=== PATIENT | female | born 1975 | race Caucasian/White ===

== ENCOUNTER 2018-03-17 10:44 | Inpatient (IN) | payer SELFPAY ==
[2018-03-17 10:45] VITALS: BP 208/102; PULSE 96; RESP 16; TEMP 36.6; O2SAT 100; BMI 40.7
--- NOTE | 2018-03-17 11:08 | RAD_ITS ---
STUDY: X-RAY - RIGHT TIBIA AND FIBULA REASON FOR EXAM: Female, 42 years old. Infection TECHNIQUE: 2 view(s) of the tibia and fibula were obtained. COMPARISON: None. FINDINGS: No evidence for acute fractures or dislocation. Joint space narrowing in the lateral knee compartment. Osteophytic spurring also noted. There is soft tissue swelling in the right leg noted. Enthesophytes at the tibial tuberosity. Plantar and calcaneal spurring. IMPRESSION: No definite evidence of osseous erosions. Soft tissue swelling. Please consider MRI exam for better assessment of osteomyelitis Electronically Signed: Marty Brown, at 12:34 EST Tel , Service support , RAD/Tibia & Fibula 2 Views
--- NOTE | 2018-03-17 11:08 | RAD_ITS ---
STUDY: X-RAY - LEFT TIBIA AND FIBULA REASON FOR EXAM: Female, 42 years old. ] Infection TECHNIQUE: 4 view(s) of the tibia and fibula were obtained. COMPARISON: None. FINDINGS: Normal visualized tibia. Normal visualized fibula. Visualized degenerative change within the left knee joint with moderate narrowing of the lateral compartment moderate to severe narrowing of the medial compartment and moderate patellofemoral arthrosis. There is a diffuse pattern of edema throughout the left calf. There is visualized plantar and Achilles spur of the calcaneus. There is soft tissue swelling. RAD/Tibia & Fibula 2 Views IMPRESSION: Moderate to severe change of the knee joint. Diffuse soft tissue edema. Electronically Signed: Crystal Anton MD at 13:02 EST Tel , Service support ,
--- NOTE | 2018-03-17 11:08 | RAD_ITS ---
STUDY: X-RAY - RIGHT FOOT CLINICAL: Female, 42 years old. Infection TECHNIQUE: 3 view(s) of the foot. COMPARISON: None. FINDINGS: Normal alignment at the metatarsophalangeal joints. No evidence for acute fractures. There is soft tissue swelling noted. There is likely soft tissue ulcerations along the distal dorsal aspect of the foot. IMPRESSION: Soft tissue ulcerations along the dorsal aspect of the foot suspected. No definite evidence for osseous erosions. Please note subtle osteomyelitis is not excluded from this examination. Please consider MRI examination with and without IV contrast for complete assessment Electronically Signed: Marty Brown, at 12:32 EST Tel , Service support , RAD/Foot min 3 Views
--- NOTE | 2018-03-17 11:26 | ED.VISSUMM ---
- ER Visit Summary Date of Service: 03/17/18 Chief Complaint: Bilateral leg wounds History of Present Illness: The patient is a 42 F who admits to not going to the doctor in several years. She reports developing a wound/rash on her lower extremity after a fall down steps at least a year ago. Since that time she has had progression of wounds on her legs. She has not sought medical care for this. She presents today stating that she just cannot take it anymore. Physical Examination: Blood pressure is 208/102, temperature 97.8, heart rate 96, respiratory rate 16, pulse ox 100% on room air. Patient is sitting upright in bed. She is nontoxic appearing. Head neck examination is unremarkable. Heart is regular rate and rhythm. Lung sounds are clear. Abdomen is soft, obese, nontender. Lower extremity examination reveals multiple wounds to all surfaces of the lower extremities distal to the knee and onto the right foot. There are areas of pitting and skin destruction with foul-smelling, green film over the wounds and smell consistent with Pseudomonas. Test Results: CBC was normal overall white count with 80% neutrophil count. Chemistry studies significant for glucose of 164, BUN 38, creatinine 1.65. X-rays of bilateral tib fibs and foot reveal evidence of soft tissue infection, but no evidence of bony erosion. Emergency Department Course and Treatment: Aerobic and anaerobic wound cultures were obtained from the right lower leg wound. Patient was given Zosyn and vancomycin. Patient was discussed with hospitalist and admitted for further treatment. Treatment Plan: [] Disposition: Admit Impression: Bilateral lower extremity wounds This note was generated with [employer] dictation software. It may contain incorrect words, spelling, and punctuation that were not noted in review of the chart prior to signing ED Disposition - Plan for ED Patient: Disposition: Acute Care [facility] Chief Complaint: Cellulitis
[2018-03-17 11:43] LABS: Absolute Neutrophil Count 8.5 X10^3/uL (2.0-7.7); Basophil# 0.03 X10^3/uL; Basophil% 0.3 % (0-1); Eosinophil# 0.14 X10^3/uL; Eosinophils% 1.3 % (0-5); Hematocrit 38.6 % (37-47); Hemoglobin 12.8 g/dl (12.0-15.0); Lymphocyte % 13.3 % (19-41); Mean Corp Hgb Conc 33.2 g/gl (32-36); Mean Corpuscular Hgb 29.4 pg (27.0-32.0); Mean Corpuscular Volume 88.5 fL (81-99); Mean Platelet Vol. 9.9 fl (6.2-12.0); Monocyte% 4.7 % (0-10); Neutrophil # 8.46 X10^3/uL (2.7-7.7); Neutrophil % 80.2 % (47-70); POSITIVE COUNT NO; POSITIVE DIFFERENTIAL NO; POSITIVE MORPHOLOGY NO; Platelet Count 270 K/mm3 (150-450); RBC Distribution Width SD 45.2 fl (35.1-43.9); Red Blood Count 4.36 M/mm3 (4.2-5.4); White Blood Count 10.6 K/mm3 (4.4-11.0)
[2018-03-17] MEDS: 0.9% Normal Saline 1,000 ML 15 ML IV (11:43)
[2018-03-17 11:59] LABS: Anion Gap 10 (5-15); BUN 38 mg/dL (7-18); Calcium,Total 9.4 mg/dL (8.5-10.1); Chloride 106 mmol/L (98-107); Creatinine, Serum 1.65 mg/dL (0.55-1.02); EST Glomerular Filtration Rate 36 mL/min (>60); Est Glom Filt Rate - Afr Amer 44 mL/min (>60); Estimated Creatinine Clearance 42.75 ml/min; Glucose 164 mg/dL (74-106); Potassium 3.4 mmol/L (3.5-5.1); Sodium Level 139 mmol/L (136-145)
[2018-03-17 12:50] VITALS: BP 155/80; PULSE 84; RESP 16; O2SAT 98
[2018-03-17 13:50] VITALS: PULSE 86; BMI 40.7; BMI 61.3
--- NOTE | 2018-03-17 14:02 | HP.PCM_ITS ---
Problem List (1) Bilateral lower leg cellulitis Status: Chronic (2) Elevated blood pressure Status: Chronic History of Present Illness Date of Admission: 03/17/18 Chief Complaint: Cellulitis The patient is a 42 year old F who has no medical history to her in a large number of years. She presents after a an accident about a year ago that left her with an open wound on her foot on the right, since then it has been progressively getting worse and extending up from the top of her right foot to below her knee. She also developed for the last couple of weeks worsening cellulitis on her left leg as well as on her right leg. She denies any fevers, or chills. There is an extensive family history of diabetes but she does not know if she is diabetic or not because she has not gone to the doctor. She presented today because she finally had an off and her was able to smell her wounds for the first time according to him. In the ER x-rays of her lower extremities demonstrate soft tissue swelling but they were inconclusive for any osteomyelitis or destruction. She was given a dose of vancomycin and Zosyn in the ER because the smell is very consistent with a pseudomonal infection. Past Medical History Past Medical History (Chronic Problems): Chronic Problems Bilateral lower leg cellulitis (Chronic) Elevated blood pressure (Chronic) Allergies No Known Allergies Allergy (Verified 12/11/12 13:28) Home Medications: Ambulatory Orders Medication Instructions Recorded NK 03/17/18 Surgical History: no surgical history Lives: Spouse/ Significant Other Smoking Status: Current every day smoker Tobacco Use: Cigarettes Alcohol: None Drugs: None - *Family History Maternal History Items: Cancer, Diabetes, Heart Disease, Hypertension Paternal History Items: Cancer, Diabetes, Heart Disease, Hypertension Review of Systems Constitutional: Denies: Chills, Fever, Weight Change HEENT: Denies: Head Aches, Sinus Congestion, Sinus Drainage Cardiovascular: Denies: Chest Pain, Palpitations Respiratory: Denies: Cough, Shortness of breath at rest, Sputum production Gastrointestinal: Denies: Abdominal Pain, Nausea, Vomiting Genitourinary: Denies: Dysuria Musculoskeletal: Denies: Joint Pain, Joint Tenderness Skin: Reports: Lesions, Wounds. Denies: Rash Neurological: Denies: Numbness, Tingling, Focal weakness Psychiatric: Denies: Anxiety, Depression Hematologic/ Lymphatic: Denies: Easy Bruising, Easy Bleeding VTE Information - Inpt Only VTE Present on Admission: No - Physical Exam General: Alert, Oriented x3, Cooperative, No apparent distress HEENT: Atraumatic, PERRLA, EOMI, Normocephalic Oral: Moist Mucosa Neck: Supple, No JVD, Trachea Midline Lungs: Clear to auscultation, Normal air movement, No rhonchi, No wheeze, No rales, Diminished Cardiovascular: Regular rate, Regular Rhythm, Normal S1, Normal S2, No murmurs, No rub noted, No Gallop Abdomen: Soft, Non Tender, Non-Distended, No Hepato-splenomegaly Extremities: Capillary Refill Less than 3 Seconds, Edema Skin: - - Multiple areas on both legs with open wounds. Her right foot has wounds stretching across her toes on the anterior surface. There is extensive redness extending from her foot up to her knee on both legs Neurological: Neuro grossly intact, Sensory exam intact to light touch and pain Psych/Mental Status: Normal Affect, Appropriate Vital Signs Temp Pulse Resp BP Pulse Ox 97.8 F 84 16 155/80 H 98 03/17/18 10:45 03/17/18 12:50 03/17/18 12:50 03/17/18 12:50 03/17/18 12:50 Oxygen Delivery Method Room Air Weight: 260 lb Body Mass Index (BMI) 40.7 Laboratory Tests Past 24 Hrs 03/17/18 03/17/18 11:35 11:35 WBC 10.6 RBC 4.36 Hgb 12.8 Hct 38.6 MCV 88.5 MCH 29.4 MCHC 33.2 RDW 14.0 RDW Differential 45.2 H Plt Count 270 MPV 9.9 Immature Gran % (Auto) 0.200 Neut % (Auto) 80.2 H Lymph % (Auto) 13.3 L [place] % (Auto) 4.7 Eos % (Auto) 1.3 Baso % (Auto) 0.3 Absolute Neuts (auto) 8.5 H Absolute Lymphs (auto) 1.40 Total Counted Not Reportable Sodium 139 Potassium 3.4 L Chloride 106 Carbon Dioxide 23.0 Anion Gap 10 BUN 38 H Creatinine 1.65 H Estim Creat Clear Calc 42.75 Est GFR (MDRD) Af Amer 44 L Est GFR (MDRD) Non-Af 36 L BUN/Creatinine Ratio 23.0 H Glucose 164 H Calcium 9.4 Assessment/Plan All Active Problems Torticollis, acute (Acute) 1. Significant bilateral lower extremity cellulitis with open wounds -X-ray of the tibia does not show any periosteal destruction or elevation, there is soft tissue edema -We will consult podiatry for foot and ankle wound biopsies and possible washout -We will obtain an MRI of her right lower extremity to determine the presence of osteomyelitis -Continue with IV Zosyn and vancomycin -We will obtain lipid panels as well as an A1c -Consult wound care nurse 2. Tobacco abuse -Counseled on cessation 3. Elevated creatinine -Creatinine is 1.65 unfortunately she is never been to a doctor so I do not have any comparison -We will treat as of this is an AK I but may very well be chronic kidney disease given the likelihood of her diabetes DVT: Lovenox Code Visit Inpatient E&M: 21965 Init Hosp L2
[2018-03-17 14:30] VITALS: BP 160/96; PULSE 86; RESP 18; TEMP 36.6; O2SAT 99
--- NOTE | 2018-03-17 14:34 | PCM.RX.CS ---
Consult Pharmacy has been consulted to manage selected antiobiotic: Vancomycin Type of Consult: New start Suspected Infection: Skin/Soft tissue Prior Doses of Antibiotics Received/Current Regimen: Received vancomycin 2000mg IV x1 in E.R. today at 12:19 Labs: Sodium 139 mmol/L (136-145) 03/17/18 11:35 Potassium 3.4 mmol/L (3.5-5.1) L 03/17/18 11:35 Chloride 106 mmol/L (98-107) 03/17/18 11:35 Carbon Dioxide 23.0 mmol/L (21.0-32.0) 03/17/18 11:35 Anion Gap 10 (5-15) 03/17/18 11:35 BUN 38 mg/dL (7-18) H 03/17/18 11:35 Creatinine 1.65 mg/dL (0.55-1.02) H 03/17/18 11:35 Est GFR (MDRD) Af Amer 44 mL/min (>60) L 03/17/18 11:35 Est GFR (MDRD) Non-Af 36 mL/min (>60) L 03/17/18 11:35 BUN/Creatinine Ratio 23.0 RATIO (10-20) H 03/17/18 11:35 Glucose 164 mg/dL (74-106) H 03/17/18 11:35 Weight used for dosin kg Estimated Creatinine Clearance: 43 ml/min Goal Trough: 15-20 mcg/mL Pharmacy Plan for Drug Dosing: Per the [facility] Pharmacist-managed IV Vancomycin Dosing Protocol, the recommendation is to continue dosing at 1000mg IV q12h to aim for a goal trough of 15-20 as the patient has cellulitis with possible osteomyelitis. The trough will be obtained before the 4th total dose. Pharmacy Service will continue to monitor and adjust dosing as required. Follow-Up Labs: Trough Vancomycin Labs to be done on [date and time ordered]: 03/18/18 at 23:30
--- NOTE | 2018-03-17 14:38 | PHA.PHARE_ITS ---
Consult Pharmacy has been consulted to manage selected antiobiotic: Vancomycin Type of Consult: New start Suspected Infection: Skin/Soft tissue Prior Doses of Antibiotics Received/Current Regimen: Received vancomycin 2000mg IV x1 in E.R. today at 12:19 Labs: Sodium 139 mmol/L (136-145) 03/17/18 11:35 Potassium 3.4 mmol/L (3.5-5.1) L 03/17/18 11:35 Chloride 106 mmol/L (98-107) 03/17/18 11:35 Carbon Dioxide 23.0 mmol/L (21.0-32.0) 03/17/18 11:35 Anion Gap 10 (5-15) 03/17/18 11:35 BUN 38 mg/dL (7-18) H 03/17/18 11:35 Creatinine 1.65 mg/dL (0.55-1.02) H 03/17/18 11:35 Est GFR (MDRD) Af Amer 44 mL/min (>60) L 03/17/18 11:35 Est GFR (MDRD) Non-Af 36 mL/min (>60) L 03/17/18 11:35 BUN/Creatinine Ratio 23.0 RATIO (10-20) H 03/17/18 11:35 Glucose 164 mg/dL (74-106) H 03/17/18 11:35 Weight used for dosin kg Estimated Creatinine Clearance: 43 ml/min Goal Trough: 15-20 mcg/mL Pharmacy Plan for Drug Dosing: Per the [facility] Pharmacist-managed IV Vancomycin Dosing Protocol, the recommendation is to continue dosing at 1000mg IV q12h to aim for a goal trough of 15-20 as the patient has cellulitis with possible osteomyelitis. The trough will be obtained before the 4th total dose. Pharmacy Service will continue to monitor and adjust dosing as required. Follow-Up Labs: Trough Vancomycin Labs to be done on [date and time ordered]: 03/18/18 at 23:30
--- NOTE | 2018-03-17 14:44 | NURSING ---
PER NIRAJ IN MICROBIOLOGY, SHE HAS RECEIVED WOUND CULTURES FOR THIS PT FROM THE ER-AEROBIC AND ANAEROBIC
[2018-03-17] MEDS: Acetaminophen 325 MG Tablet 650 MG PO ×2 (15:31→20:46)
[2018-03-17] MEDS: Morphine 2 MG/ML Syringe IV (15:32)
[2018-03-17] MEDS: 0.9% Normal Saline 1,000 ML 100 ML IV (15:33)
[2018-03-17] MEDS: Insulin Lispro 100 UNIT/ML INSULN.PEN SQ ×2 (16:07→20:53)
[2018-03-17 16:11] LABS: Bedside Glucose 155 mg/dL (70-110)
[2018-03-17] MEDS: Nystatin Powder 15gm Bottle 1 APPLIC TOPICAL (20:52)
[2018-03-17 21:00] VITALS: BP 151/82; PULSE 84; RESP 18; TEMP 37; O2SAT 97
[2018-03-17 21:01] LABS: Bedside Glucose 191 mg/dL (70-110)
[2018-03-17] MEDS: Piperacil/Tazobactam 3.375 GM/50 ML ML IV (21:41)
[2018-03-17] MEDS: Vancomycin IV 1,000 MG/200 ML BAG 200 MG IV (23:55)
[2018-03-18] MEDS: 0.9% Normal Saline 1,000 ML 100 ML IV ×3 (01:22→22:14)
[2018-03-18] MEDS: Acetaminophen 325 MG Tablet 650 MG PO ×3 (03:09→19:56)
[2018-03-18 03:33] VITALS: BP 153/89; PULSE 84; RESP 18; TEMP 36.4; O2SAT 98
[2018-03-18] MEDS: Piperacil/Tazobactam 3.375 GM/50 ML ML IV ×3 (05:47→22:14)
[2018-03-18] MEDS: Nystatin Powder 15gm Bottle 1 APPLIC TOPICAL ×2 (05:48→20:02)
[2018-03-18 06:25] LABS: Absolute Lymphocyte Count 0.98 X10^3/ul (0.83-4.51); Absolute Neutrophil Count 7.9 X10^3/uL (2.0-7.7); Basophil# 0.03 X10^3/uL; Basophil% 0.3 % (0-1); Eosinophil# 0.14 X10^3/uL; Eosinophils% 1.4 % (0-5); Hematocrit 36.2 % (37-47); Hemoglobin 11.9 g/dl (12.0-15.0); Lymphocyte # 0.98 X10^3/ul (4.0); Lymphocyte % 10.1 % (19-41); Mean Corp Hgb Conc 32.9 g/gl (32-36); Mean Corpuscular Hgb 29.4 pg (27.0-32.0); Mean Corpuscular Volume 89.4 fL (81-99); Mean Platelet Vol. 10.4 fl (6.2-12.0); Monocyte% 7.2 % (0-10); Neutrophil # 7.87 X10^3/uL (2.7-7.7); Neutrophil % 80.8 % (47-70); Platelet Count 263 K/mm3 (150-450); RBC Distribution Width CV 14.1 % (11.6-14.6); RBC Distribution Width SD 45.1 fl (35.1-43.9); Red Blood Count 4.05 M/mm3 (4.2-5.4); White Blood Count 9.7 K/mm3 (4.4-11.0)
[2018-03-18 06:29] LABS: Anion Gap 11 (5-15); BUN 33 mg/dL (7-18); BUN/Creat Ratio 25.4 RATIO (10-20); Calcium,Total 8.9 mg/dL (8.5-10.1); Chloride 108 mmol/L (98-107); Cholesterol 142 mg/dL (200); EST Glomerular Filtration Rate 47 mL/min (>60); Est Glom Filt Rate - Afr Amer 57 mL/min (>60); Estimated Creatinine Clearance 54.26 ml/min; Glucose 168 mg/dL (74-106); High Density Lipoprotein 44 mg/dL; Potassium 3.6 mmol/L (3.5-5.1); Sodium Level 142 mmol/L (136-145); Triglycerides 93 mg/dL; Very Low Density Lipoprotein 19 mg/dL (5-40)
[2018-03-18 07:10] LABS: POSITIVE COUNT NO; POSITIVE DIFFERENTIAL NO; POSITIVE MORPHOLOGY NO
[2018-03-18 07:31] LABS: Bedside Glucose 135 mg/dL (70-110)
[2018-03-18 08:36] LABS: Hemoglobin A1c 8.1 % (4.2-6.3)
[2018-03-18] MEDS: Enoxaparin 40 MG/0.4 ML Syringe SC (09:47)
[2018-03-18 09:54] VITALS: BP 175/92; PULSE 80; RESP 18; TEMP 37.5; O2SAT 100
[2018-03-18 11:06] LABS: Bedside Glucose 137 mg/dL (70-110)
[2018-03-18] MEDS: Vancomycin IV 1,000 MG/200 ML BAG 200 MG IV (11:29)
--- NOTE | 2018-03-18 11:35 | CASEMGMT ---
LUCITA RIVERA Assessment. Presentation: presented to ER with nonhealing open wound on R foot from accident 1 year ago. Wound cultures, podiatry and wound nurse consult. Intro role of CM to patient and her boyfriend in room. PCP: none, list of PCP's given to pt. F/U for this admission can be with podiatry until set up with PCP. Pharmacy: [facility]. Pt does not have prescription coverage. SW updated pt may need [facility] prescription assist on dc. Insurance: none. pt states she works, but they do not have insurance at this time. SHANTA Gu consulted to speak with pt re: options. Living arrangements: Lives in one story home with Boyfriend, Derek Davila and her 21 year old son. Per MrTalita Reed, he is willing to learn to do dressing changes and provide transportation for pt. DME: none. Pt may need walker, states she has friend who may let her borrow. Otherwise, LUCITA RIVERA let pt know she can purchase one @ [facility] or [facility]. Transportation: son and boyfriend will assist with transportation. DC Plan: Home with family support for dressing changes. F/U with podiatry on dc. Brennen BELLA RN ACM
[2018-03-18] MEDS: Morphine 2 MG/ML Syringe IV ×2 (11:54→14:58)
[2018-03-18] MEDS: 0.9% NaCl Peripheral Flush Adult/Peds IV (11:54)
--- NOTE | 2018-03-18 13:16 | CASEMGMT ---
Social Work Note SHANTA met with pt as pt is listed as self-pay. SW introduced self and role at [facility]. Pt is alert and orientated x4. Pt has guest present in room but gave this worker permission to speak to her in front of her guest. Pt confirms that she is self-pay. SW provided pt with financial resources including HCAP application, [employer] [facility], [employer], [facility], Prescription assistance programs, and Medicaid application. SHANTA informed pt that HCAP and Medicaid application can be completed while at [facility] and then can be submitted. Pt states understanding. Connie Mullins ROSS CARRIER DRIVER, ACCOUNT COLLECTOR
[2018-03-18 13:19] LABS: M R Staph aureus DNA By PCR Negative (Negative); Probe Check PASS; Specimen Processing Control PASS; Staph aureus DNA By PCR NEGATIVE (Negative)
--- NOTE | 2018-03-18 14:32 | PCM.CONS.GEN ---
Reason for Consult Date of Consultation: 03/18/18 Reason for Consultation: Lower extremity ulcerations with infection History of Present Illness: The patient is a 42 year old female with obesity, recently diagnosed with diabetes, increased creatinine, presented to the hospital with bilateral lower extremity ulcerations. She relates these started ~1 year ago, she relates she was trying to treat these herself, she states they would get better, then worse, then better, but now significantly worse. She presented to the ER because her boyfriend noticed an oder. It was noted in the ER she had significant lower extremity wounds, right much worse than left. A culture has been obtained and final results pending. Cellulitis was noted. Xrays were negative for gas in the tissues or any evidence of osteomyelitis. She does not relate to any fever, chills, nausea or vomiting. She relates the wounds are painful. Past Medical History Past Medical History (Chronic Problems): Chronic Problems Bilateral lower leg cellulitis (Chronic) Elevated blood pressure (Chronic) Allergies No Known Allergies Allergy (Verified 12/11/12 13:28) Home Medications: Ambulatory Orders Medication Instructions Recorded NK 03/17/18 Surgical History: no surgical history Lives: Spouse/ Significant Other Smoking Status: Current every day smoker Tobacco Use: Cigarettes Alcohol: None Drugs: None - *Family History Maternal History Items: Cancer, Diabetes, Heart Disease, Hypertension Paternal History Items: Cancer, Diabetes, Heart Disease, Hypertension Review of Systems Constitutional: Denies: Chills, Fever Gastrointestinal: Denies: Nausea, Vomiting Musculoskeletal: Reports: Foot Pain Skin: Reports: Wounds Objective: Reviewed lower extremity xrays - no gas in the tissues, no evidence of osteomyelitis - Physical Exam General: Alert, Oriented x3, Cooperative, No apparent distress Extremities: No clubbing, No cyanosis, Capillary Refill Less than 3 Seconds, Peripheral Pulses Normal, - - There is diffuse venous insufficiency with chronic venous stasis skin changes bilateral LE. There are multiple ulcerations to the right lower extremity down to the subcutaneous tissue, there is significant slough and fibrotic tissue, but granular tissue is noted as well, there is some cellulitis around the wounds, there is pain to the wound sites, there is some maloder, but no visible abscess, no fluctuance, no crepitus noted. CFT < 2 seconds to all toes bilateral, no evidence of ischemia to the foot bilateral. Pedal pulses intact bilateral. Toenails are thickened, dystrophic, yellow, with subungual debris 1-5 bilateral. Muscle strength intact bilateral, motor function intact bilateral lower extremity. Sensation intact to touch bilateral foot. There is no significant deformity to the foot bilateral. Diffuse lower extremity edema bilateral. Skin: Ulcer/ Wound - Multiple lower extremity ulcerations, no probe to bone, muslce or tendon. Musculoskeletal: No Tenderness to Palpation of Joints or Extremities - Pain to the ulcerations of the lower extremity, otherwise no other pain to the joints of the foot/ankle bilateral. Psych/Mental Status: Alert and oriented to time, place, person, mood and affect Vital Signs Temp Pulse Resp BP Pulse Ox 99.5 F H 80 18 175/92 H 100 03/18/18 09:54 03/18/18 09:54 03/18/18 09:54 03/18/18 09:54 03/18/18 09:54 Oxygen Delivery Method Room Air Weight: 177.7 kg Body Mass Index (BMI) 61.3 Intake and Output for Last 24 Hours 03/16/18 03/17/18 03/18/18 23:59 23:59 23:59 Intake Total 1356 / 1356 1914 / 1914 Output Total 1050 / 1050 Balance 1356 / 1356 864 / 864 Microbiology Past 72 Hours 03/17/18 11:10 Gram Stain - Final Wound - Leg Wound Culture - Preliminary Gram negative jerod Beta hemolytic organism Laboratory Tests Past 24 Hrs 03/18/18 03/18/18 03/18/18 05:20 05:20 05:20 WBC 9.7 RBC 4.05 L Hgb 11.9 L Hct 36.2 L MCV 89.4 MCH 29.4 MCHC 32.9 RDW 14.1 RDW Differential 45.1 H Plt Count 263 MPV 10.4 Immature Gran % (Auto) 0.200 Neut % (Auto) 80.8 H Lymph % (Auto) 10.1 L [place] % (Auto) 7.2 Eos % (Auto) 1.4 Baso % (Auto) 0.3 Absolute Neuts (auto) 7.9 H Absolute Lymphs (auto) 0.98 Total Counted Not Reportable Sodium 142 Potassium 3.6 Chloride 108 H Carbon Dioxide 23.0 Anion Gap 11 BUN 33 H Creatinine 1.30 H Estim Creat Clear Calc 54.26 Est GFR (MDRD) Af Amer 57 L Est GFR (MDRD) Non-Af 47 L BUN/Creatinine Ratio 25.4 H Glucose 168 H Hemoglobin A1c 8.1 H Calcium 8.9 Triglycerides 93 Cholesterol 142 LDL Cholesterol 79 VLDL Cholesterol 19 HDL Cholesterol 44 S.aureus Protein A PCR MRSA (PCR) 03/18/18 03/18/18 09:20 09:20 WBC RBC Hgb Hct MCV MCH MCHC RDW RDW Differential Plt Count MPV Immature Gran % (Auto) Neut % (Auto) Lymph % (Auto) [place] % (Auto) Eos % (Auto) Baso % (Auto) Absolute Neuts (auto) Absolute Lymphs (auto) Total Counted Sodium Potassium Chloride Carbon Dioxide Anion Gap BUN Creatinine Estim Creat Clear Calc Est GFR (MDRD) Af Amer Est GFR (MDRD) Non-Af BUN/Creatinine Ratio Glucose Hemoglobin A1c Calcium Triglycerides Cholesterol LDL Cholesterol VLDL Cholesterol HDL Cholesterol S.aureus Protein A PCR NEGATIVE NEGATIVE MRSA (PCR) Negative Negative POC Glucose 03/18/18 03/18/18 03/17/18 11:00 07:26 20:51 POC Glucose 137 H 135 H 191 H 03/17/18 16:06 POC Glucose 155 H Assessment/Plan All Active Problems Torticollis, acute (Resolved) Multiple lower extremity ulcerations down to the subcutaneous tissue layer w/ cellulitis Venous insufficiency bilateral lower extremity Diabetes Reviewed findings and diagnostic data. Given the findings recommend debridement of ulcerations in the OR setting as patient is sensate, and will need anesthesia. This was discussed with her in detail, reviewed the rationale of this as well as the possible benefits vs risks, goals, expectations and typical healing time. She understands it will take awhile for these ulcerations to heal, and she will need close and regular follow up. I have recommended she follow up at the wound center once discharged for on going wound care. The patient expressed understanding and agreement with this. No guarantees were given or implied. We will plan to proceed with this procedure 03/19/18 at noon, patient to be NPO at midnight. Continue to follow culture, MRSA DNA PCR was negative for MRSA. The patient will continue on Zosyn at this time, as it does to appear to be helping (cellulitis has receded from the marked line). Diabetes management and management of patient's other medical problems per the medicine team. I have discussed cased with Dr. Lira from the medicine team. Podiatry will continue to follow. Thank you for consultation.
--- NOTE | 2018-03-18 15:08 | CHAPLAIN ---
Type of Pastoral Visit _x__ Initial Visit ___ Follow-up Visit ___ On-call Visit ___ General Patient Visit ___ Spiritual Assessment ___ Family Conference ___ Bereavement ___ Rapid Response ___ Code Blue ___ Other (describe below) Pastoral Care Referral From _x__ Patient ___ Family ___ Nurse ___ Physician ___ E Commerce Director ___ Hand Picker ___ Other (describe below) Sacrament/Intervention _x__ Active listening ___ Anointing ___ Alevism ___ Bereavement ___ Communion ___ Beatriz exploration ___ _x__ Life review ___ Prayer ___ Reconciliation ___ Sacrament of Sick _x__ Supportive presence ___ Wedding ___ Other (describe below) Pastoral Comments
[2018-03-18 15:15] VITALS: BP 169/86; PULSE 80; RESP 16; TEMP 36.9; O2SAT 95
[2018-03-18 16:25] LABS: Bedside Glucose 144 mg/dL (70-110)
--- NOTE | 2018-03-18 19:20 | PCM.PROGNOTE ---
Subjective: Patient seen and examined today, I did not unwrap the patient's legs to examine them today, I did talk with podiatry briefly, podiatry did not think the patient needed an MRI of her right foot, I canceled the imaging study today. According to podiatry, they are going to debride the patient's right foot wound tomorrow. I talked briefly with the patient, she has been neglecting her health for quite some time and not going to a physician. - Physical Exam General: Alert, Oriented x3, Cooperative, No apparent distress, Well developed, Well nourished HEENT: Atraumatic, PERRLA, EOMI, Normocephalic Oral: Moist Mucosa Neck: Supple, Trachea Midline, Thyroid Normal Size and Texture Lungs: Clear to auscultation, Normal air movement, No rhonchi, No wheeze, No rales Cardiovascular: Regular rate, Regular Rhythm, Normal S1, Normal S2, No murmurs Abdomen: Bowel Sounds Present, Soft, Non Tender, Non-Distended, Obese Extremities: No cyanosis Neurological: Cranial nerves II-XII grossly intact, Neuro grossly intact, Muscle tone normal, Sensory exam intact to light touch and pain Psych/Mental Status: Normal Affect, Appropriate, Alert and oriented to time, place, person, mood and affect Vital Signs Temp Pulse Resp BP Pulse Ox 98.4 F 80 16 169/86 H 95 03/18/18 15:15 03/18/18 15:15 03/18/18 15:15 03/18/18 15:15 03/18/18 15:15 Oxygen Delivery Method Room Air Weight: 177.7 kg Body Mass Index (BMI) 61.3 Intake and Output for Last 24 Hours 03/16/18 03/17/18 03/18/18 23:59 23:59 23:59 Intake Total 1356 / 1356 1914 / 1914 Output Total 1050 / 1050 Balance 1356 / 1356 864 / 864 Microbiology Past 72 Hours 03/17/18 11:10 Gram Stain - Final Wound - Leg Wound Culture - Preliminary Gram negative jerod Beta hemolytic organism Laboratory Tests Past 24 Hrs 03/18/18 03/18/18 03/18/18 05:20 05:20 05:20 WBC 9.7 RBC 4.05 L Hgb 11.9 L Hct 36.2 L MCV 89.4 MCH 29.4 MCHC 32.9 RDW 14.1 RDW Differential 45.1 H Plt Count 263 MPV 10.4 Immature Gran % (Auto) 0.200 Neut % (Auto) 80.8 H Lymph % (Auto) 10.1 L [place] % (Auto) 7.2 Eos % (Auto) 1.4 Baso % (Auto) 0.3 Absolute Neuts (auto) 7.9 H Absolute Lymphs (auto) 0.98 Total Counted Not Reportable Sodium 142 Potassium 3.6 Chloride 108 H Carbon Dioxide 23.0 Anion Gap 11 BUN 33 H Creatinine 1.30 H Estim Creat Clear Calc 54.26 Est GFR (MDRD) Af Amer 57 L Est GFR (MDRD) Non-Af 47 L BUN/Creatinine Ratio 25.4 H Glucose 168 H Hemoglobin A1c 8.1 H Calcium 8.9 Triglycerides 93 Cholesterol 142 LDL Cholesterol 79 VLDL Cholesterol 19 HDL Cholesterol 44 S.aureus Protein A PCR MRSA (PCR) 03/18/18 03/18/18 09:20 09:20 WBC RBC Hgb Hct MCV MCH MCHC RDW RDW Differential Plt Count MPV Immature Gran % (Auto) Neut % (Auto) Lymph % (Auto) [place] % (Auto) Eos % (Auto) Baso % (Auto) Absolute Neuts (auto) Absolute Lymphs (auto) Total Counted Sodium Potassium Chloride Carbon Dioxide Anion Gap BUN Creatinine Estim Creat Clear Calc Est GFR (MDRD) Af Amer Est GFR (MDRD) Non-Af BUN/Creatinine Ratio Glucose Hemoglobin A1c Calcium Triglycerides Cholesterol LDL Cholesterol VLDL Cholesterol HDL Cholesterol S.aureus Protein A PCR NEGATIVE NEGATIVE MRSA (PCR) Negative Negative POC Glucose 03/18/18 03/18/18 03/18/18 16:20 11:00 07:26 POC Glucose 144 H 137 H 135 H 03/17/18 20:51 POC Glucose 191 H Medical Necessity - Tobacco Use Smoking Status: Current every day smoker Tobacco Use: Cigarettes Assessment/Plan All Active Problems Torticollis, acute (Resolved) #1 cellulitis of the legs-wound culture is pending, Gram stain showed a gram-negative jerod and a beta hemolytic organism. Patient will remain on Zosyn for now, podiatry is planning on debriding the patient's right foot wound tomorrow, I will hold her Lovenox tomorrow morning and she will be n.p.o. after 2 AM tomorrow. #2 type 2 diabetes-newly diagnosed, patient will be placed on metformin 500 mg twice daily, she will be seen by nutritional services #3 hypertension-patient will be placed on amlodipine 5 mg p.o. daily for now, if her renal function improves, this will be changed to lisinopril #4 noncompliance-patient states that she did not seek medical care because she did not want bad news, patient states that she knows now that she has to pay more attention to her health #5 morbid obesity Code Visit Inpatient E&M: 90611 Subs Hosp L2
[2018-03-18 19:54] VITALS: BP 179/92; PULSE 94; RESP 18; TEMP 36.9; O2SAT 95
[2018-03-18] MEDS: amLODIPine 5 MG Tablet PO (19:56)
--- NOTE | 2018-03-18 22:07 | NUR.TO.PHY ---
Pt witnessed to be apneic while sleeping at this time by this RN.
[2018-03-18 22:10] VITALS: BP 147/75; PULSE 86; RESP 18; TEMP 36.9; O2SAT 96
[2018-03-18] MEDS: Insulin Lispro 100 UNIT/ML INSULN.PEN SQ (22:14)
[2018-03-18 22:25] LABS: Bedside Glucose 164 mg/dL (70-110)
[2018-03-19] VITALS (10 sets, daily range): BP systolic 115–169; BP diastolic 7–86; PULSE 65–85; RESP 16–18; TEMP 36.3–37.2; O2SAT 98–100
[2018-03-19] MEDS: 0.9% NaCl Peripheral Flush Adult/Peds IV (02:33)
[2018-03-19] MEDS: Morphine 2 MG/ML Syringe IV (02:33)
[2018-03-19] MEDS: Acetaminophen 325 MG Tablet 650 MG PO (03:10)
[2018-03-19] MEDS: Nystatin Powder 15gm Bottle 1 APPLIC TOPICAL ×3 (05:45→21:50)
[2018-03-19] MEDS: Piperacil/Tazobactam 3.375 GM/50 ML ML IV ×3 (05:45→21:50)
[2018-03-19 05:51] LABS: Bedside Glucose 137 mg/dL (70-110)
--- NOTE | 2018-03-19 05:55 | EKG12_ITS ---
Test Reason : AM EKG Blood Pressure : / mmHG Vent. Rate : 076 BPM Atrial Rate : 076 BPM P-R Int : 194 ms QRS Dur : 114 ms QT Int : 404 ms P-R-T Axes : 032 -04 026 degrees QTc Int : 454 ms Normal sinus rhythm Poor R wave progression Confirmed by HIEN CMGRAW, LAVON ([id number]), manager editorial MIKE PADRON ([id number] on 03/21/2018 4:15:59 PM Referred By: JASSON Confirmed By:LAVON STANFORD MD
[2018-03-19 06:50] LABS: Absolute Lymphocyte Count 1.12 X10^3/ul (0.83-4.51); Absolute Neutrophil Count 6.4 X10^3/uL (2.0-7.7); Basophil# 0.02 X10^3/uL; Basophil% 0.2 % (0-1); Eosinophil# 0.13 X10^3/uL; Eosinophils% 1.6 % (0-5); Hematocrit 34.2 % (37-47); Lymphocyte # 1.12 X10^3/ul (4.0); Lymphocyte % 13.6 % (19-41); Mean Corp Hgb Conc 32.2 g/gl (32-36); Mean Corpuscular Hgb 29.2 pg (27.0-32.0); Mean Corpuscular Volume 90.7 fL (81-99); Mean Platelet Vol. 10.3 fl (6.2-12.0); Monocyte% 7.3 % (0-10); Neutrophil # 6.37 X10^3/uL (2.7-7.7); Neutrophil % 77.1 % (47-70); Platelet Count 248 K/mm3 (150-450); RBC Distribution Width CV 14.1 % (11.6-14.6); RBC Distribution Width SD 45.1 fl (35.1-43.9); Red Blood Count 3.77 M/mm3 (4.2-5.4); White Blood Count 8.3 K/mm3 (4.4-11.0)
[2018-03-19 06:55] LABS: POSITIVE COUNT NO; POSITIVE DIFFERENTIAL NO; POSITIVE MORPHOLOGY NO
[2018-03-19 06:56] LABS: Anion Gap 8 (5-15); BUN 23 mg/dL (7-18); BUN/Creat Ratio 23.5 RATIO (10-20); Calcium,Total 8.3 mg/dL (8.5-10.1); Chloride 111 mmol/L (98-107); Creatinine, Serum 0.98 mg/dL (0.55-1.02); EST Glomerular Filtration Rate 66 mL/min (>60); Est Glom Filt Rate - Afr Amer 79 mL/min (>60); Estimated Creatinine Clearance 71.98 ml/min; Glucose 140 mg/dL (74-106); Potassium 3.5 mmol/L (3.5-5.1); Sodium Level 141 mmol/L (136-145)
--- NOTE | 2018-03-19 09:06 | NURSING ---
Pt is scheduled for surgical debridement of bilateral lower leg/right foot wounds today per Dr Hui. will leave dressings in place at this time.
[2018-03-19 10:59] LABS: Pregnancy, Serum, hCG Quali. NEGATIVE Negative (0-9 Nonpreg)
--- NOTE | 2018-03-19 11:39 | NURSING ---
1100 pt to or via bed with chart and family accompanying. report called to janki riojas with no questions voiced
[2018-03-19] MEDS: Bupivacaine Mpf 0.5% 30 ML VIAL (13:31)
--- NOTE | 2018-03-19 13:36 | PCM.IMDPSTOP ---
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 left leg ulcer with fat layer exposed and cellulitis. right foot ulcer with fat layer exposed and cellulitis Post-Operative Diagnosis: right leg ulcer with fat layer exposed and cellulitis. left leg ulcer with fat layer exposed and cellulitis. right foot ulcer with fat layer exposed and cellulitis Surgery/Procedure Performed:: excisional subcutaneous debridement of right foot, right leg, and left leg ulcers Description of Surgical Findings:: Hemostasis controlled No materials No specimens No complications See detailed operation report for additional findings The patient tolerated the procedure and anesthesia well. She will be transferred to the PACU with vital signs stable and vascular status intact to bilateral lower extremities. She will be further transferred back to the regular medical surgical floor for medical management, IV antibiotics, and pain management. All postoperative orders were entered electronically. Estimated Blood Loss: < 100 mL Specimen's removed: none Type of Anesthesia:: General, Local - Preoperative: 1: 1 mixture of 1% lidocaine plain and 0.5% Marcaine plain administered sub-dermal to ulcer sites bilateral lower extremities, 20 cc Postoperative: 1: 1 mixture of 1% lidocaine plain and 0.5% Marcaine plain administered sub-dermal to ulcer sites posterior left lower extremity, 10 cc - Admit VTE Documentation VTE Present on Admission: No VTE Mechan Device Prophylaxis: None VTE Pharm Prophylaxis ordered?: Yes
--- NOTE | 2018-03-19 13:40 | PCM.OPRPT ---
Problem List (1) Ulcer of right lower extremity with fat layer exposed Status: Chronic (2) Ulcer of left lower extremity with fat layer exposed Status: Chronic (3) Ulcer of right foot with fat layer exposed Status: Chronic (4) Bilateral leg edema Status: Chronic (5) Venous insufficiency Status: Suspected (6) Bilateral lower leg cellulitis Status: Acute Report of Operation Date of Procedure: 03/19/18 - Surgeon: Sendy Hendrix DPM Pre-Operative Diagnosis: right leg ulcer with fat layer exposed and cellulitis. left leg ulcer with fat layer exposed and cellulitis. right foot ulcer with fat layer exposed and cellulitis Post-Operative Diagnosis: right leg ulcer with fat layer exposed and cellulitis. left leg ulcer with fat layer exposed and cellulitis. right foot ulcer with fat layer exposed and cellulitis Surgery/Procedure Performed:: excisional subcutaneous debridement of right foot, right leg, and left leg ulcers Description of Surgical Findings:: Hemostasis: Anatomic debridement, no tourniquet utilized Materials: None Complications: None fork truck operator: none Type of Anesthesia:: General, Local - Preoperative: 1: 1 mixture of 1% lidocaine plain and 0.5% Marcaine plain administered sub-dermal to ulcer sites bilateral lower extremities, 20 cc Postoperative: 1: 1 mixture of 1% lidocaine plain and 0.5% Marcaine plain administered sub-dermal to ulcer sites posterior left lower extremity, 10 cc Specimen's removed: none Estimated Blood Loss (mL): < 100 mL Description of Procedure: Indications: This 42-year-old female with significant past medical history of diabetes, hypertension, and obesity has chronic bilateral lower extremity ulcers. She is chronic swelling of the lower extremities as well. Her ulcer sites have recently become more painful and she has redness and odor to the right leg more than the left leg. She was admitted and started on IV antibiotics and was not able to tolerate bedside debridement. There is recommended that she undergo anesthesia to allow surgical debridement and irrigation of the ulcer sites. Her cultures did demonstrate bacterial growth. The preoperative indications, planned procedure, possible benefits, risks, complications, and anticipated healing time management were discussed in detail the patient. She understands and elects to proceed with surgery at this time. No guarantees were made. She understands that complications include but are not limited to the following: Scarring, swelling, ongoing pain, delayed or nonhealing, infection, blood clot, allergic reaction, loss of limb, function, life. This is likely a staged procedure and she will require comprehensive wound healing plan after the infection has subsided. I answered all her questions. The informed surgical consent and surgical limb was signed. I answered all her questions. Procedure and detail: The patient was transferred to the operating room via cart and placed on the operating room table in supine position. MAC anesthesia was initiated by the anesthesia team and this was not enough to sedate her to a comfortable state. She was transitioned into general anesthesia. Local anesthetic was administered by myself subdermally to all ulcer cluster sites as noted. It is noted she is already receiving IV Zosyn while on the medical surgical floor. No tourniquets were utilized. Bilateral lower extremities were prepped and draped in the usual aseptic manner. Attention was first directed to the right leg where a versa jet on setting 8 and 15 blade scalpel was used to debride all ulcer sites of devitalized subcutaneous tissue, fibrous tissue, fibrin necrotic plug tissue biofilm, slough. The drainage expressed from these fibrous plug sites were serous and purulent. There is no deep abscess palpated or deep tissue exposure noted. The exact same procedure was performed on the left limb. The predebridement measurement for right leg was 21 cm x 48.9 cm x 0.1 (cluster circumferential entire leg, 50%) [post debridement 22 cm x 49 cm x 0.1 cm], right foot 6.5 cm x 6.2 cm x 0.1 cm [post debridement 6.7 cm x 6.4 cm x 0.1 cm], left anterior leg 12.5 cm x 10.8 cm x 0.1 cm cluster, (50% debrided)[post debridement 13 cm x 11 cm x 0.1 cm], left posterior leg 14.5 cm x 7.8 cm x 0.1 cm (cluster 50% debrided) [post debridement 15 cm x 8 c x0.1 cm]. Pressure was applied to maintain hemostasis. After debridement it is noted brisk capillary refill time was noted to all digits of bilateral feet and no pulsatile bleeding was noted. Betadine and saline scrub brushes were next used to exfoliate all the skin peeling and dried wound drainage from both legs and feet. Next a post debridement dressing consisting of Adaptic, 4 x 4 gauze, abdominal pad, Kerlix, and Coban were applied and a compressive manner. After procedure: The patient tolerated the procedure well and was transported to the PACU vital signs stable vascular status intact to bilateral lower extremity's. She will be transferred back to the regular medical surgical floor upon continued stability. Recommend elevation of bilateral lower extremities and continued use of compression dressing to reduce edema. I recommend nutritional supplementation and improved glycemic control optimize healing, recommend daily dressing changes. Medical management and DVT prophylaxis per primary team is appreciated. To continue on IV antibiotics per culture growth. I recommend after her hospital stay she follows up with the wound healing center for comprehensive ulcer management. All of her postoperative orders were entered electronically into the computer. Sendy Hendrix DPM, [facility]
[2018-03-19 13:56] LABS: Bedside Glucose 111 mg/dL (70-110)
[2018-03-19] MEDS: 0.9% Normal Saline 1,000 ML 100 ML IV (16:45)
[2018-03-19 17:10] LABS: Bedside Glucose 157 mg/dL (70-110)
[2018-03-19] MEDS: Lisinopril 20 MG Tablet PO (17:20)
[2018-03-19] MEDS: Insulin Lispro 100 UNIT/ML INSULN.PEN SQ ×2 (17:21→21:50)
[2018-03-19] MEDS: oxyCODONE 5 MG Tablet PO (18:14)
--- NOTE | 2018-03-19 19:44 | PN_ITS ---
Subjective: Patient was seen and examined today, she underwent debridement of her foot wound. She is complaining of some postop pain but otherwise has no specific complaints. Patient does not complain of any fevers or chills, patient's white blood cell count today was normal. Patient remains afebrile, blood sugars remain under adequate control at this time. I placed the patient on lisinopril today and will continue this medication due to her diabetes. - Physical Exam General: Alert, Oriented x3, Cooperative, No apparent distress, Well developed HEENT: Atraumatic, PERRLA, EOMI, Normocephalic Oral: Moist Mucosa Neck: Supple, Trachea Midline, Thyroid Normal Size and Texture Lungs: Clear to auscultation, Normal air movement, No rhonchi, No wheeze, No rales Cardiovascular: Regular rate, Regular Rhythm, Normal S1, Normal S2, No murmurs, No Ectopic Activity, PMI Normal, No rub noted, No Gallop Abdomen: Bowel Sounds Present, Soft, Non Tender, Non-Distended, Obese Extremities: No clubbing, No cyanosis, Capillary Refill Less than 3 Seconds Neurological: Cranial nerves II-XII grossly intact, Neuro grossly intact, Sensory exam intact to light touch and pain Psych/Mental Status: Normal Affect, Appropriate, Alert and oriented to time, place, person, mood and affect Vital Signs Temp Pulse Resp BP Pulse Ox 98.8 F 75 16 145/72 H 98 03/19/18 17:29 03/19/18 17:29 03/19/18 17:29 03/19/18 17:29 03/19/18 17:29 Oxygen Delivery Method Room Air Weight: 177.7 kg Body Mass Index (BMI) 61.3 Finger Stick Blood Glucose 111 Intake and Output for Last 24 Hours 03/17/18 03/18/18 03/19/18 23:59 23:59 23:59 Intake Total 1356 / 1356 4116 / 4116 2176 / 2176 Output Total 1550 / 1550 Balance 1356 / 1356 2566 / 2566 2176 / 2176 Microbiology Past 72 Hours 03/17/18 11:35 Blood Culture - Preliminary Blood Culture (Wb) - Anticubital Right No growth in 48 hours. 03/17/18 11:35 Blood Culture - Preliminary Blood Culture (Wb) - Anticubital Left No growth in 48 hours. 03/17/18 11:10 Gram Stain - Final Wound - Leg Wound Culture - Preliminary Gram negative jerod Beta hemolytic organism Anaerobic Culture - Preliminary Checking for anaerobes, further studies to follow. Laboratory Tests Past 24 Hrs 03/19/18 03/19/18 03/19/18 06:02 06:02 06:02 WBC 8.3 RBC 3.77 L Hgb 11.0 L Hct 34.2 L MCV 90.7 MCH 29.2 MCHC 32.2 RDW 14.1 RDW Differential 45.1 H Plt Count 248 MPV 10.3 Immature Gran % (Auto) 0.200 Neut % (Auto) 77.1 H Lymph % (Auto) 13.6 L [place] % (Auto) 7.3 Eos % (Auto) 1.6 Baso % (Auto) 0.2 Absolute Neuts (auto) 6.4 Absolute Lymphs (auto) 1.12 Total Counted Not Reportable Sodium 141 Potassium 3.5 Chloride 111 H Carbon Dioxide 22.0 Anion Gap 8 BUN 23 H Creatinine 0.98 Estim Creat Clear Calc 71.98 Est GFR (MDRD) Af Amer 79 Est GFR (MDRD) Non-Af 66 BUN/Creatinine Ratio 23.5 H Glucose 140 H Calcium 8.3 L Serum , Qual NEGATIVE POC Glucose 03/19/18 03/19/18 03/19/18 16:34 13:51 05:47 POC Glucose 157 H 111 H 137 H 03/18/18 22:13 POC Glucose 164 H Medical Necessity - Tobacco Use Smoking Status: Current every day smoker Tobacco Use: Cigarettes Assessment/Plan All Active Problems Bilateral lower leg cellulitis (Acute) Torticollis, acute (Resolved) #1 cellulitis of the legs-wound culture is pending, Gram stain showed a gram- negative jerod and a beta hemolytic organism. Continue present antibiotic coverage #2 type 2 diabetes-newly diagnosed, patient will be placed on metformin 500 mg twice daily, she will be seen by nutritional services #3 hypertension-patient will be placed on lisinopril 20 mg daily #4 noncompliance-patient states that she did not seek medical care because she did not want bad news, patient states that she knows now that she has to pay more attention to her health #5 morbid obesity #6 Bilateral stasis ulcerations of the lower legs-postop day 0 debridement of ulcerations of right foot, right lower leg, and left lower leg. Code Visit Inpatient E&M: 66010 Subs Hosp L2
--- NOTE | 2018-03-19 21:57 | NUR.TO.PHY ---
O2 alarming @ 73% with 2L on. Patient found to be have periods of apnea while sleeping, mouth breather. NC moved to mouth. Incentive spirometry initiated. O2 up to 96% on 2L.
[2018-03-19 22:20] LABS: Bedside Glucose 155 mg/dL (70-110)
--- NOTE | 2018-03-19 22:56 | NURSING ---
O2 sats 88% on 2L, up to 3L and sats to 96%
[2018-03-20] VITALS (7 sets, daily range): BP systolic 110–138; BP diastolic 60–90; PULSE 65–84; RESP 16–18; TEMP 36.3–36.9; O2SAT 59–100
--- NOTE | 2018-03-20 00:10 | CPS ---
pt had cpap on for about 10 min-very anxious and claustrophbic-did not want to wear just wanted water.-nurse aware-pt placed on 5 l/m via nc
[2018-03-20] MEDS: oxyCODONE 5 MG Tablet PO ×4 (01:13→17:41)
[2018-03-20] MEDS: 0.9% Normal Saline 1,000 ML 100 ML IV ×2 (01:13→09:28)
[2018-03-20] MEDS: Nystatin Powder 15gm Bottle 1 APPLIC TOPICAL (05:17)
[2018-03-20] MEDS: Piperacil/Tazobactam 3.375 GM/50 ML ML IV ×2 (05:17→14:15)
[2018-03-20 06:41] LABS: Bedside Glucose 138 mg/dL (70-110)
--- NOTE | 2018-03-20 07:55 | PCM.PROGNOTE ---
Patient Problems: Active and Suspected Problems Venous insufficiency (Suspected) Bilateral lower leg cellulitis (Acute) Subjective: Patient was seen this morning for follow up on bilateral leg/foot ulcerations with cellulitis, she had debridement yesterday by Dr. Hendrix. She relates overall doing well, patient afebrile, no nausea or vomiting. - Physical Exam General: Alert, Oriented x3, Cooperative, No apparent distress Extremities: Capillary Refill Less than 3 Seconds, Peripheral Pulses Normal, - - There is diffuse venous insufficiency with chronic venous stasis skin changes bilateral LE. There are multiple ulcerations to the right lower extremity down to the subcutaneous tissue s/p debridement, no probing to bone or deeper structures, base of wounds fibrogranular, there is less cellulitis around the wounds, there is pain to the wound sites, there is no maloder, no visible abscess, no fluctuance, no crepitus noted. CFT < 2 seconds to all toes bilateral, no evidence of ischemia to the foot bilateral. Pedal pulses intact bilateral. Diffuse lower extremity edema bilateral. No evidence of ischemia bilateral lower extremity. Vital Signs Temp Pulse Resp BP Pulse Ox 97.9 F 75 18 110/60 98 03/20/18 05:18 03/20/18 05:18 03/20/18 05:18 03/20/18 05:18 03/20/18 07:21 Oxygen Flow Rate (L/min) 5 Oxygen Delivery Method Nasal Cannula Weight: 177.7 kg Body Mass Index (BMI) 61.3 Finger Stick Blood Glucose 111 Intake and Output for Last 24 Hours 03/18/18 03/19/18 03/20/18 23:59 23:59 23:59 Intake Total 4116 / 4116 2176 / 2176 4186 / 4186 Output Total 1550 / 1550 Balance 2566 / 2566 2176 / 2176 4186 / 4186 Microbiology Past 72 Hours 03/17/18 11:35 Blood Culture - Preliminary Blood Culture (Wb) - Anticubital Right No growth in 48 hours. 03/17/18 11:35 Blood Culture - Preliminary Blood Culture (Wb) - Anticubital Left No growth in 48 hours. 03/17/18 11:10 Gram Stain - Final Wound - Leg Wound Culture - Preliminary Gram negative jerod Beta hemolytic organism Anaerobic Culture - Preliminary Checking for anaerobes, further studies to follow. Laboratory Tests Past 24 Hrs 03/19/18 06:02 Serum , Qual NEGATIVE POC Glucose 03/20/18 03/19/18 03/19/18 06:36 21:48 16:34 POC Glucose 138 H 155 H 157 H 03/19/18 13:51 POC Glucose 111 H Medical Necessity - Tobacco Use Smoking Status: Current every day smoker Tobacco Use: Cigarettes Assessment/Plan All Active Problems Bilateral lower leg cellulitis (Acute) Torticollis, acute (Resolved) Multiple lower extremity ulcerations down to the subcutaneous tissue layer w/ cellulitis Venous insufficiency bilateral lower extremity Diabetes Reviewed findings and diagnostic data.s/p debridement, wounds looking better. Continue to follow culture, MRSA DNA PCR was negative for MRSA, growing beta hemolytic organism and gram neg jerod. The patient will continue on Zosyn at this time. Continue with daily dressing changes of Adaptic with overlying gauze and compressive dressing bilateral lower extremity. Diabetes management and management of patient's other medical problems per the medicine team. d/c planning: Patient will need to follow up at wound center for continued wound care management. Podiatry will continue to follow.
[2018-03-20] MEDS: Lisinopril 20 MG Tablet PO (09:11)
--- NOTE | 2018-03-20 11:24 | PCM.DC ---
- Discharge Diagnoses Current Active Problems: Current Active and Chronic Problems Ulcer of right lower extremity with fat layer exposed (Chronic) Ulcer of left lower extremity with fat layer exposed (Chronic) Ulcer of right foot with fat layer exposed (Chronic) Bilateral leg edema (Chronic) Bilateral lower leg cellulitis (Acute) You will use the following diet at home:: Calorie/Carbohydrate Controlled (specify 1200, 1400, etc) - 1800 michael Your food should be the consistency of: Regular Your liquids should be the consistency of: Regular/Thin Discharge Activity: Return to Normal Activity Weight Bearing Status: Full weight bearing Additional Instructions: Adaptic to all open areas, cover with ABD pads, wrap with Kerlix, apply JAME wraps- daily Allergies/Adverse Reactions: Allergies No Known Allergies Allergy (Verified 12/11/12 13:28) Medications to take at Discharge Cephalexin [Keflex] 500 mg PO TID #30 capsule 03/20/18 Ciprofloxacin [Cipro] 500 mg PO BID #20 tablet 03/20/18 Lisinopril [Zestril] 20 mg PO DAILY #30 tablet 03/20/18 Metformin HCl [Glucophage] 500 mg PO BIDCM #60 tablet 03/20/18 Nystatin Powder [Mycostatin Powder] 1 applic TOPICAL TID bottle 03/20/18 Oxycodone [Oxyir] 5 - 10 mg PO Q4H PRN PRN 7 Days #20 tablet 03/20/18 The following prescriptions were given: Oxycodone [Oxyir] 5 - 10 mg PO Q4H PRN PRN 7 Days #20 tablet PRN Reason: Severe Pain (6-10/10) Lisinopril [Zestril] 20 mg PO DAILY #30 tablet Ciprofloxacin [Cipro] 500 mg PO BID #20 tablet Metformin HCl [Glucophage] 500 mg PO BIDCM #60 tablet Cephalexin [Keflex] 500 mg PO TID #30 capsule Primary Care Physician: Care Physician,No Primary [Primary Care Provider] - Please follow up with your Primary Care Physician in: in 2-3 weeks Test Results: Test results from this visit will be discussed in further detail at your follow-up appointment, if applicable. Please Follow Up With: [facility] When: Sunday
--- NOTE | 2018-03-20 11:27 | DCINST_ITS ---
- Discharge Diagnoses Current Active Problems: Current Active and Chronic Problems Ulcer of right lower extremity with fat layer exposed (Chronic) Ulcer of left lower extremity with fat layer exposed (Chronic) Ulcer of right foot with fat layer exposed (Chronic) Bilateral leg edema (Chronic) Bilateral lower leg cellulitis (Acute) You will use the following diet at home:: Calorie/Carbohydrate Controlled (specify 1200, 1400, etc) - 1800 michael Your food should be the consistency of: Regular Your liquids should be the consistency of: Regular/Thin Discharge Activity: Return to Normal Activity Weight Bearing Status: Full weight bearing Additional Instructions: Adaptic to all open areas, cover with ABD pads, wrap with Kerlix, apply JAME wraps- daily Allergies/Adverse Reactions: Allergies No Known Allergies Allergy (Verified 12/11/12 13:28) Medications to take at Discharge Cephalexin [Keflex] 500 mg PO TID #30 capsule 03/20/18 Ciprofloxacin [Cipro] 500 mg PO BID #20 tablet 03/20/18 Lisinopril [Zestril] 20 mg PO DAILY #30 tablet 03/20/18 Metformin HCl [Glucophage] 500 mg PO BIDCM #60 tablet 03/20/18 Nystatin Powder [Mycostatin Powder] 1 applic TOPICAL TID bottle 03/20/18 Oxycodone [Oxyir] 5 - 10 mg PO Q4H PRN PRN 7 Days #20 tablet 03/20/18 The following prescriptions were given: Oxycodone [Oxyir] 5 - 10 mg PO Q4H PRN PRN 7 Days #20 tablet PRN Reason: Severe Pain (6-10/10) Lisinopril [Zestril] 20 mg PO DAILY #30 tablet Ciprofloxacin [Cipro] 500 mg PO BID #20 tablet Metformin HCl [Glucophage] 500 mg PO BIDCM #60 tablet Cephalexin [Keflex] 500 mg PO TID #30 capsule Primary Care Physician: Care Physician,No Primary [Primary Care Provider] - Please follow up with your Primary Care Physician in: in 2-3 weeks Test Results: Test results from this visit will be discussed in further detail at your follow- up appointment, if applicable. Please Follow Up With: [facility] When: Sunday
[2018-03-20 12:11] LABS: Bedside Glucose 136 mg/dL (70-110)
[2018-03-20 18:26] LABS: Bedside Glucose 143 mg/dL (70-110)
--- NOTE | 2018-03-20 21:39 | PCM.DC.SUM ---
Discharge Date and Diagnosis Date of Admission: 03/17/18 Date of Discharge: 03/20/18 - Primary Discharge Diagnosis #1 cellulitis of the legs-Proteus and Pseudomonas #2 type 2 diabetes-newly diagnosed #3 hypertension #4 noncompliance with routine medical care #5 morbid obesity #6 Bilateral stasis ulcerations of the lower legs with infection with Proteus and Pseudomonas #7 acute kidney injury - Secondary Discharge Diagnosis Chronic Problems Ulcer of right lower extremity with fat layer exposed (Chronic) Ulcer of left lower extremity with fat layer exposed (Chronic) Ulcer of right foot with fat layer exposed (Chronic) Bilateral leg edema (Chronic) Elevated blood pressure (Chronic) Hospital Course and Treatment Consultations 03/17/18 13:48 Consult: Onc/Wound/research methodologist Routine Comment: Reason for Consult:: Wounds Operations: - - Debridement of bilateral infected stasis ulcerations of both lower legs Procedures: None Summary of Care Provided: The patient is a 42 year old F seen in the emergency room at [facility] with a chief complaint of infected draining ulcerations of both lower legs. She had been noncompliant with her medical care and not seen a doctor in years, workup in the emergency room included a CBC that was unremarkable, chemistry studies were significant for a glucose of 164, BUN of 38, creatinine of 1.65. X-rays of bilateral tib fibs areas revealed soft tissue infection but no evidence of bony erosion. Cultures were obtained from the patient's wounds, she was admitted to [place] [id number], her blood sugars were monitored and she was given sliding scale insulin per fingerstick blood sugars. She was seen in consultation by podiatry and the wound care nurse. Her blood pressure was elevated and she was given oral blood pressure medications. She was seen in consultation by nutritional services due to her new diagnosis of type 2 diabetes. Patient underwent debridement of leg ulcerations by podiatry, she was treated with IV antibiotics, cultures resulted in what appeared to be Pseudomonas and Proteus from her wounds. On 03/20/18, patient was seen and examined: On examination she appeared in good health and spirits. Vital signs as documented. Skin warm and dry and without overt rashes. Neck without JVD. Lungs clear. Heart exam notable for regular rhythm, normal sounds and absence of murmurs, rubs or gallops. Abdomen unremarkable and without evidence of organomegaly, masses, or abdominal aortic enlargement, patient is morbidly obese. Extremities-patient's both lower legs were wrapped with surgical dressing. Neuro: Cranial nerves II through XII are grossly intact, no focal motor deficits were noted, sensation to light touch and pinprick is intact. Psych: Patient is alert and oriented x3, she does not appear anxious or depressed On 03/20/18, patient was seen and examined felt to be in stable condition for discharge home - Physical Exam Vital Signs Temp Pulse Resp BP Pulse Ox 98.4 F 80 16 138/90 H 99 03/20/18 19:37 03/20/18 19:37 03/20/18 19:37 03/20/18 19:37 03/20/18 19:37 Oxygen Flow Rate (L/min) 5 Oxygen Delivery Method Room Air Weight: 177.7 kg Body Mass Index (BMI) 61.3 Finger Stick Blood Glucose 111 Intake and Output for Last 24 Hours 03/18/18 03/19/18 03/20/18 23:59 23:59 23:59 Intake Total 4116 / 4116 2176 / 2176 6191 / 6191 Output Total 1550 / 1550 Balance 2566 / 2566 2176 / 2176 6191 / 6191 Microbiology Past 72 Hours 03/17/18 11:10 Gram Stain - Final Wound - Leg Wound Culture - Preliminary Gram negative jerod Gram negative jerod#2 Gram Positive Cocci Anaerobic Culture - Preliminary Checking for anaerobes, further studies to follow. 03/17/18 11:35 Blood Culture - Preliminary Blood Culture (Wb) - Anticubital Right No growth in 48 hours. 03/17/18 11:35 Blood Culture - Preliminary Blood Culture (Wb) - Anticubital Left No growth in 48 hours. POC Glucose 03/20/18 03/20/18 03/20/18 17:39 12:03 06:36 POC Glucose 143 H 136 H 138 H 03/19/18 21:48 POC Glucose 155 H Discharge Activity: Return to Normal Activity Weight Bearing Status: Full weight bearing Home Medications: Medications to take at Discharge Cephalexin [Keflex] 500 mg PO TID #30 capsule 03/20/18 Ciprofloxacin [Cipro] 500 mg PO BID #20 tablet 03/20/18 Lisinopril [Zestril] 20 mg PO DAILY #30 tablet 03/20/18 Metformin HCl [Glucophage] 500 mg PO BIDCM #60 tablet 03/20/18 Nystatin Powder [Mycostatin Powder] 1 applic TOPICAL TID bottle 03/20/18 Oxycodone [Oxyir] 5 - 10 mg PO Q4H PRN PRN 7 Days #20 tablet 03/20/18 Following Prescrptions Were Given to Patient: Oxycodone [Oxyir] 5 - 10 mg PO Q4H PRN PRN 7 Days #20 tablet PRN Reason: Severe Pain (-12/12) Lisinopril [Zestril] 20 mg PO DAILY #30 tablet Ciprofloxacin [Cipro] 500 mg PO BID #20 tablet Metformin HCl [Glucophage] 500 mg PO BIDCM #60 tablet Cephalexin [Keflex] 500 mg PO TID #30 capsule Primary Care Physician: Care Physician,No Primary [Primary Care Provider] - Please follow up with your Primary Care Physician in: in 2-3 weeks Please Follow Up With: [facility] When: Sunday Disposition: Home Minutes spent on discharge:: 32 Patient Condition:: Stable Medical Necessity - Tobacco Use Smoking Status: Current every day smoker Tobacco Use: Cigarettes Meaningful Use Info Meaningful Use Diagnoses (Choose all that apply): None applicable Code Visit Inpatient E&M: 90034 Disch Hosp
--- NOTE | 2018-03-20 21:44 | DS.PCM_ITS ---
Discharge Date and Diagnosis Date of Admission: 03/17/18 Date of Discharge: 03/20/18 - Primary Discharge Diagnosis #1 cellulitis of the legs-Proteus and Pseudomonas #2 type 2 diabetes-newly diagnosed #3 hypertension #4 noncompliance with routine medical care #5 morbid obesity #6 Bilateral stasis ulcerations of the lower legs with infection with Proteus and Pseudomonas #7 acute kidney injury - Secondary Discharge Diagnosis Chronic Problems Ulcer of right lower extremity with fat layer exposed (Chronic) Ulcer of left lower extremity with fat layer exposed (Chronic) Ulcer of right foot with fat layer exposed (Chronic) Bilateral leg edema (Chronic) Elevated blood pressure (Chronic) Hospital Course and Treatment Consultations 03/17/18 13:48 Consult: Onc/Wound/data warehousing engineer Routine Comment: Reason for Consult:: Wounds Operations: - - Debridement of bilateral infected stasis ulcerations of both lower legs Procedures: None Summary of Care Provided: The patient is a 42 year old F seen in the emergency room at [facility] with a chief complaint of infected draining ulcerations of both lower legs. She had been noncompliant with her medical care and not seen a doctor in years, workup in the emergency room included a CBC that was unremarkable, chemistry studies were significant for a glucose of 164, BUN of 38, creatinine of 1.65. X-rays of bilateral tib fibs areas revealed soft tissue infection but no evidence of bony erosion. Cultures were obtained from the patient's wounds, she was admitted to [place] [address], her blood sugars were monitored and she was given sliding scale insulin per fingerstick blood sugars. She was seen in consultation by podiatry and the wound care nurse. Her blood pressure was elevated and she was given oral blood pressure medications. She was seen in consultation by nutritional services due to her new diagnosis of type 2 diabetes. Patient underwent debridement of leg ulcerations by podiatry, she was treated with IV antibiotics, cultures resulted in what appeared to be Pseudomonas and Proteus from her wounds. On 03/20/18, patient was seen and examined: On examination she appeared in good health and spirits. Vital signs as documented. Skin warm and dry and without overt rashes. Neck without JVD. Lungs clear. Heart exam notable for regular rhythm, normal sounds and absence of murmurs, rubs or gallops. Abdomen unremarkable and without evidence of organomegaly, masses, or abdominal aortic enlargement, patient is morbidly obese. Extremities-patient's both lower legs were wrapped with surgical dressing. Neuro: Cranial nerves II through XII are grossly intact, no focal motor deficits were noted, sensation to light touch and pinprick is intact. Ps ych: Patient is alert and oriented x3, she does not appear anxious or depressed On 03/20/18, patient was seen and examined felt to be in stable condition for discharge home - Physical Exam Vital Signs Temp Pulse Resp BP Pulse Ox 98.4 F 80 16 138/90 H 99 03/20/18 19:37 03/20/18 19:37 03/20/18 19:37 03/20/18 19:37 03/20/18 19:37 Oxygen Flow Rate (L/min) 5 Oxygen Delivery Method Room Air Weight: 177.7 kg Body Mass Index (BMI) 61.3 Finger Stick Blood Glucose 111 Intake and Output for Last 24 Hours 03/18/18 03/19/18 03/20/18 23:59 23:59 23:59 Intake Total 4116 / 4116 2176 / 2176 6191 / 6191 Output Total 1550 / 1550 Balance 2566 / 2566 2176 / 2176 6191 / 6191 Microbiology Past 72 Hours 03/17/18 11:10 Gram Stain - Final Wound - Leg Wound Culture - Preliminary Gram negative jerod Gram negative jerod#2 Gram Positive Cocci Anaerobic Culture - Preliminary Checking for anaerobes, further studies to follow. 03/17/18 11:35 Blood Culture - Preliminary Blood Culture (Wb) - Anticubital Right No growth in 48 hours. 03/17/18 11:35 Blood Culture - Preliminary Blood Culture (Wb) - Anticubital Left No growth in 48 hours. POC Glucose 03/20/18 03/20/18 03/20/18 17:39 12:03 06:36 POC Glucose 143 H 136 H 138 H 03/19/18 21:48 POC Glucose 155 H Discharge Activity: Return to Normal Activity Weight Bearing Status: Full weight bearing Home Medications: Medications to take at Discharge Cephalexin [Keflex] 500 mg PO TID #30 capsule 03/20/18 Ciprofloxacin [Cipro] 500 mg PO BID #20 tablet 03/20/18 Lisinopril [Zestril] 20 mg PO DAILY #30 tablet 03/20/18 Metformin HCl [Glucophage] 500 mg PO BIDCM #60 tablet 03/20/18 Nystatin Powder [Mycostatin Powder] 1 applic TOPICAL TID bottle 03/20/18 Oxycodone [Oxyir] 5 - 10 mg PO Q4H PRN PRN 7 Days #20 tablet 03/20/18 Following Prescrptions Were Given to Patient: Oxycodone [Oxyir] 5 - 10 mg PO Q4H PRN PRN 7 Days #20 tablet PRN Reason: Severe Pain (-12/12) Lisinopril [Zestril] 20 mg PO DAILY #30 tablet Ciprofloxacin [Cipro] 500 mg PO BID #20 tablet Metformin HCl [Glucophage] 500 mg PO BIDCM #60 tablet Cephalexin [Keflex] 500 mg PO TID #30 capsule Primary Care Physician: Care Physician,No Primary [Primary Care Provider] - Please follow up with your Primary Care Physician in: in 2-3 weeks Please Follow Up With: [facility] When: Sunday Disposition: Home Minutes spent on discharge:: 32 Patient Condition:: Stable Medical Necessity - Tobacco Use Smoking Status: Current every day smoker Tobacco Use: Cigarettes Meaningful Use Info Meaningful Use Diagnoses (Choose all that apply): None applicable Code Visit Inpatient E&M: 19840 Disch Hosp
== END 2018-03-20 19:39 | disposition home or self-care (01) | DRG 571 ==
LOC: ED 12:42 → MS3 13:23
PROVIDERS: Anesthesiology; Podiatrist; Admitting Provider Family Medicine; Emergency Provider Emergency Medicine; Visit Provider Internal Medicine
PROC: 0JBN0ZZ Excision of Right Lower Leg Subcutaneous Tissue and Fascia, Open Approach (ICD-10-PCS; principal; 2018-03-19 11:45)
DX: L97.912 Non-pressure chronic ulcer of unspecified part of right lower leg with fat layer exposed (principal); L03.116 Cellulitis of left lower limb; L03.115 Cellulitis of right lower limb; Z68.44 Body mass index [BMI] 60.0-69.9, adult; N17.9 Acute kidney failure, unspecified; L97.922 Non-pressure chronic ulcer of unspecified part of left lower leg with fat layer exposed; L97.512 Non-pressure chronic ulcer of other part of right foot with fat layer exposed; F17.210 Nicotine dependence, cigarettes, uncomplicated; I87.2 Venous insufficiency (chronic) (peripheral); I10 Essential (primary) hypertension; E66.01 Morbid (severe) obesity due to excess calories; E11.9 Type 2 diabetes mellitus without complications; Z91.19 Patient's noncompliance with other medical treatment and regimen; Z83.3 Family history of diabetes mellitus; B96.4 Proteus (mirabilis) (morganii) as the cause of diseases classified elsewhere; B96.5 Pseudomonas (aeruginosa) (mallei) (pseudomallei) as the cause of diseases classified elsewhere
CPT/HCPCS: 36415; 73590; 73630; 80048; 80061; 82962; 83036; 84703; 85025; 87040; 87070; 87075; 87077; 87186; 87205; 87640; 93005; 94660; 97802; 99283; 99406; J7030; J7040; A4216; J2405